=== PATIENT | female | born 1940 | race Caucasian/White ===

== ENCOUNTER → 2017-06-10 | Outpatient (CLI) | payer MEDICARE ==
--- NOTE | 2017-06-10 12:30 | US ---
EXAMINATION TYPE: US extremity nonvasc complt LT DATE OF EXAM: 06/10/2017 COMPARISON: NONE CLINICAL HISTORY: R22.9 Soft tissue swelling pelvis/left hip. Patient had fall approximately 2 months prior and fell on her hip/thigh. Mixed echogenicity oval structure at palpable area at left lateral thigh slightly inferior to hip zhanna suring 3.4 x 2.1 x 3.2cm. Area shows no vascularity. IMPRESSION: Avascular complex 3.4 cm predominantly hypoechoic mass in the area recent trauma is most sonographically compatible with a subcutaneous hematoma. Short-term follow-up could be performed to ensure resolution.
== END | disposition home or self-care (01) ==
LOC: RADUSWWP 08:50
PROVIDERS: ATTEND Internal Medicine
DX: R22.9 Localized swelling, mass and lump, unspecified (principal)

== ENCOUNTER → 2018-09-17 | Outpatient (CLI) | payer MEDICARE ==
--- NOTE | 2018-09-17 16:04 | US ---
EXAMINATION TYPE: US pelvic limited DATE OF EXAM: 09/17/2018 COMPARISON: NONE CLINICAL HISTORY: R10.31 RT LOWER QUADRANT ABD PAIN. General pelvic pain x yesterday- no pain today, complete hysterectomy x 30 years ago TECHNIQUE: Transabdominal (TA). Transabdominal sonographic images of the pelvis were acquired. Date of LMP: Complete hysterectomy EXAM MEASUREMENTS: 1. Uterus: Surgically absent 2. Endometrium: Surgically absent 3. Right Ovary: Surgically absent 4. Left Ovary: Surgically absent 5. Bilateral Adnexa: wnl, fluid filled peristalsing loops of bowel see 6. Posterior cul-de-sac: no free fluid Bladder- distended, wnl - Bilateral jets seen IMPRESSION: Surgical absence of the ovaries and uterus. Bowel is seen in the surgical bed. No suspici ous finding is identified.
== END | disposition home or self-care (01) ==
LOC: RADUSWWP 14:42
PROVIDERS: ATTEND Internal Medicine
DX: R10.31 Right lower quadrant pain (principal); Z90.710 Acquired absence of both cervix and uterus
CPT/HCPCS: 76857

== ENCOUNTER 2023-06-15 11:24 | Emergency (ER) | payer MEDICARE ==
--- NOTE | 2023-06-15 11:51 | ED ---
Extremity Problem HPI - General Stated complaint: Pain in upper R leg Time Seen by Provider: 06/15/23 11:50 Source: patient, RN notes reviewed Mode of arrival: ambulatory Limitations: no limitations - History of Present Illness Initial comments: Patient is an 83-year-old female presented to the ER with chief complaint of right thigh pain. Patient states been going on for the past 3 days. She states it is making hard to sleep. She has been using [id number] Biofreeze without relief. Denies any knwon traumas, paresthesias or limited range of motion or hx of blood clots. - Related Data Allergies Allergy/AdvReac Type Severity Reaction Status Date / Time Penicillins Allergy Swelling Verified 06/15/23 11:52 Review of Systems ROS Statement: Those systems with pertinent positive or pertinent negative responses have been documented in the HPI. ROS Other: All systems not noted in ROS Statement are negative. General Exam - General Exam Comments Initial Comments: Visual Physical Exam Vital signs reviewed General: Well-appearing, nontoxic, no acute distress. Head: Normocephalic, atraumatic Eyes: PERRLA, EOMI ENT: Airway patent Chest: Nonlabored breathing Skin: No visual rash, normal skin tone Neuro: Alert and oriented 3 Musculoskeletal: No gross abnormalities General appearance: alert, in no apparent distress Head exam: Present: atraumatic, normocephalic, normal inspection Respiratory exam: Present: normal lung sounds bilaterally. Absent: respiratory distress, wheezes, rales, rhonchi, stridor Cardiovascular Exam: Present: regular rate, normal rhythm, normal heart sounds. Absent: systolic murmur, diastolic murmur, rubs, gallop, clicks Extremities exam: Present: normal inspection, full ROM, normal capillary refill, other (2+ bilateral dorsalis pedis pulse. Sensation intact. Negative straight leg roll bilaterally). Absent: tenderness, pedal edema, joint swelling, calf tenderness Back exam: Present: normal inspection Neurological exam: Present: alert, oriented X3, CN II-XII intact Psychiatric exam: Present: normal affect, normal mood Skin exam: Present: warm, dry, intact, normal color. Absent: rash Course Vital Signs 06/15/23 06/15/23 11:47 13:36 Temperature 98.4 F 97.9 F Pulse Rate 86 81 Respiratory 18 18 Rate Blood Pressure 125/73 135/89 O2 Sat by Pulse 96 96 Oximetry Medical Decision Making - Medical Decision Making I performed the quick note portion of this chart. Electronically signed by MELIDA Smith-Wale Was pt. sent in by a medical professional or institution (, MELIDA, FOAM DISP[employer]ER, urgent care, hospital, or fdc...) When possible be specific @ -No Did you speak to anyone other than the patient for history (EMS, parent, family, police, friend...)? What history was obtained from this source @ -No Did you review nursing and triage notes (agree or disagree)? Why? @ -I reviewed and agree with nursing and triage notes Were old charts reviewed (outside hosp., previous admission, EMS record, old EKG, old radiological studies, urgent care reports/EKG's, fdc records)? Report findings @ -No old charts were reviewed Differential Diagnosis (chest pain, altered mental status, abdominal pain women, abdominal pain men, vaginal bleeding, weakness, fever, dyspnea, syncope, headac he, dizziness, GI bleed, back pain, seizure, CVA, palpatations, mental health, musculoskeletal)? @ -Differential Musculoskeletal: Muscular strain, contusion, ligament sprain, fracture, arthritis, septic arthritis, bursitis, cellulitis, muscle spasm, nerve compression, DVT, arterial occlusion, herpes zoster, electrolyte abnormality, tumor.... This is not meant to be in all inclusive list EKG interpreted by me (3pts min.). @ -None X-rays interpreted by me (1pt min.). @ -None done CT interpreted by me (1pt min.). @ -None done U/S interpreted by me (1pt. min.). @ -Ultrasound venous Doppler of right lower extremity negative for acute DVTs. What testing was considered but not performed or refused? (CT, X-rays, U/S, labs)? Why? @ -None What meds were considered but not given or refused? Why? @ -None Did you discuss the management of the patient with other professionals (professionals i.e. MELIDA Flores, FOAM DISPENSER, lab, RT, psych nurse, aids social worker, senior ui designer, teacher, juvenile correctional officer, nurse case manager)? Give summary @ -No Was smoking cessation discussed for >3mins.? @ -No Was critical care preformed (if so, how long)? @ -No Were there social determinants of health that impacted care today? How? ( Homelessness, low income, unemployed, alcoholism, drug addiction, transportation, low edu. Level, literacy, decrease access to med. care, senior living, rehab)? @ -No Was there de-escalation of care discussed even if they declined (Discuss DNR or withdrawal of care, Hospice)? DNR status @ -No What co-morbidities impacted this encounter? (DM, HTN, Smoking, COPD, CAD, Cancer, CVA, ARF, Chemo, Hep., AIDS, mental health diagnosis, sleep apnea, morbid obesity)? @ -None Was patient admitted / discharged? Hospital course, mention meds given and route, prescriptions, significant lab abnormalities, going to OR and other pertinent info. @ -Discharge. Patient is an 83-year-old female presented to the ER with chief complaint of right thigh pain. History and physical exam completed. Vitals stable. Patient in no signs of acute distress. Patient's bilateral lower extremities neurovascular intact. Patient had full active range of motion. Denied any back pain. Due to concern of DVT. Ultrasound performed. Ultrasound negative for acute DVTs. Results to patient, all questions answered. Patient received IM steroids for symptom control. Advised [id number] Tylenol and Motrin for pain control. Return parameters discussed. Patient discharged stable condition with follow-up to orthopedics. Referral given. Patient expressed understanding and agreement with care plan. Undiagnosed new problem with uncertain prognosis? @ -No Drug Therapy requiring intensive monitoring for toxicity (Heparin, Nitro, Insulin, Cardizem)? @ -No Were any procedures done? @ -No Diagnosis/symptom? @ -Thigh pain Acute, or Chronic, or Acute on Chronic? @ -Acute Uncomplicated (without systemic symptoms) or Complicated (systemic symptoms)? @ -Uncomplicated Side effects of treatment? @ -No Exacerbation, Progression, or Severe Exacerbation? @ -No Poses a threat to life or bodily function? How? (Chest pain, USA, MD, pneumonia, PE, COPD, DKA, ARF, appy, cholecystitis, CVA, Diverticulitis, Homicidal, Choudhary icidal, threat to staff... and all critical care pts) @ -No - Radiology Data Radiology results: report reviewed, image reviewed Disposition Clinical Impression: Thigh pain Disposition: HOME SELF-CARE Condition: Stable Instructions (If sedation given, give patient instructions): Leg Pain (ED) Additional Instructions: Please follow-up with orthopedics or PCP if symptoms persist. Return to the ER for any new or worsening symptoms. Is patient prescribed a controlled substance at d/c from ED?: No Referrals: Di Oliveira MD [Primary Care Provider] - 1-2 days Ajit Olsen MD [STAFF PHYSICIAN] - 1-2 days Time of Disposition: 13:04
[2023-06-15 12:08] VITALS: RESP 18
--- NOTE | 2023-06-15 12:49 | US ---
EXAMINATION TYPE: US venous doppler duplex LE RT DATE OF EXAM: 06/15/2023 12:18 PM COMPARISON: NONE CLINICAL INDICATION: Female, 83 years old with history of pain; right lateral hip pain to thigh. No redness. No swelling. Not on blood thinners. SIDE PERFORMED: Right TECHNIQUE: The lower extremity deep venous system is examined utilizing real time linear array sonog mary with graded compression, doppler sonography and color-flow sonography. VESSELS IMAGED: Common Femoral Vein Deep Femoral Vein Greater Saphenous Vein * Femoral Vein Popliteal Vein Small Saphenous Vein * Proximal Calf Veins (* superficial vessels) Right Leg: Negative for DVT IMPRESSION: Grayscale, color doppler, spectral doppler imaging performed of the deep veins of the lo wer extremities. There is normal flow, compressibility, vascular waveforms.
[2023-06-15] MEDS: DEXAMETHASONE SOD PHOSPHATE 4 MG/ML 1 ML VIAL IM STA (13:32)
[2023-06-15 13:44] VITALS: BP 135/89; PULSE 81; TEMP 97.9
== END 2023-06-15 13:38 | disposition home or self-care (01) ==
LOC: EC 11:24
DX: M79.651 Pain in right thigh (principal); Z88.0 Allergy status to penicillin
CPT/HCPCS: 93971; 99283; 96372; J1100